=== PATIENT | female | born 2000 | race Caucasian/White ===

== ENCOUNTER → 2024-03-08 08:10 | Outpatient (REF) | payer BC, SELFPAY ==
[2024-03-12 05:25] LABS: Chlamydia trachomatis,ThinPrep Negative (Negative); Neisseria gonorrhoeae,ThinPrep Negative (Negative); Specimen Source Cervical
== END ==
LOC: CPAP 08:10
PROVIDERS: ATTENDING PHYSICIAN Obstetrics & Gynecology
DX: Z01.419 Encounter for gynecological examination (general) (routine) without abnormal findings (principal); Z11.3 Encounter for screening for infections with a predominantly sexual mode of transmission
CPT/HCPCS: 87491; 87591; G0123